=== PATIENT | male | born 1960 | race Two or more races ===

== ENCOUNTER 2020-04-09 08:39 | Emergency (ER) | payer OTHER ==
[~2020-04-09] VITALS: Ht 172.7 cm; Wt 74.4 kg
[2020-04-09] MEDS ORDERED: TOPROL XL50 M1 PO (08:58)
[2020-04-09] MEDS ORDERED: TRIBENZOR 40-51 EACH PO (08:59)
[2020-04-09] MEDS ORDERED: NEURONTIN300 MG PO (08:59)
[2020-04-09] MEDS ORDERED: PLAVIX75 MG PO (09:00)
[2020-04-09] MEDS ORDERED: CARDURA XL4 MG PO (09:00)
[2020-04-09] MEDS ORDERED: JANUMET 50-1,01 EACH PO (09:00)
[2020-04-09] MEDS ORDERED: LIPITOR20 MG PO (09:00)
[2020-04-09] MEDS ORDERED: SYNTHROID75 MCG PO (09:01)
[2020-04-09] MEDS ORDERED: HUMALOG MI100 UNIT/2 SQ (09:01)
== END 2020-04-09 14:05 | disposition home or self-care (01) ==
LOC: ER 08:39
DX: J16.8 Pneumonia due to other specified infectious organisms (principal); Z20.822 Contact with and (suspected) exposure to COVID-19

== ENCOUNTER 2020-05-18 07:22 | Outpatient (CLI) | payer OTHER ==
[~2020-05-18 07:22] MED LIST: CARDURA XL4 MG PO; HUMALOG MI100 UNIT/2 SQ; JANUMET 50-1,01 EACH PO; LIPITOR20 MG PO; NEURONTIN300 MG PO; PLAVIX75 MG PO; SYNTHROID75 MCG PO; TOPROL XL50 M1 PO; TRIBENZOR 40-51 EACH PO
== END 2020-05-18 08:24 | disposition home or self-care (01) ==
LOC: RAD 07:22 → TOM 07:45 → RAD 08:24
PROVIDERS: ATTEND Internal Medicine Pulmonary Disease
DX: J98.11 Atelectasis (principal); J91.8 Pleural effusion in other conditions classified elsewhere; J18.0 Bronchopneumonia, unspecified organism

== ENCOUNTER 2020-12-20 07:43 | Outpatient (CLI) | payer OTHER | END 2020-12-20 07:54 | disposition home or self-care (01) | LOC: TOM 07:43 | PROVIDERS: ATTEND Internal Medicine Pulmonary Disease | DX: I25.10 Atherosclerotic heart disease of native coronary artery without angina pectoris (principal); J98.11 Atelectasis; J91.8 Pleural effusion in other conditions classified elsewhere; J18.0 Bronchopneumonia, unspecified organism ==